=== PATIENT | male | born 1955 | race Two or more races ===

== ENCOUNTER 2024-02-08 03:05 | Inpatient (IN) | payer MEDICARE, MEDICAID, SELFPAY ==
[2024-02-08] VITALS (16 sets, daily range): BP systolic 96–132; BP diastolic 52–76; PULSE 40–69; RESP 13–21; TEMP 35.4–37.1; O2SAT 94–100; BMI 23.7
--- NOTE | 2024-02-08 03:21 | PC.NURSE ---
Dr. Hale at the bedside at this time.
--- NOTE | 2024-02-08 03:29 | PD.EDSYNC ---
ED Syncope RME/HPI General Chief Complaint: Syncope / Near Syncope Stated Complaint: BRADYCARDIA Time Seen by Provider: 02/08/24 03:07 Arrival date/time: 02/08/24 03:05 RME / HPI RME / HPI narrative: Dr. Hale?s Main ED Evaluation: 68yo male with pmhx DM, HTN, BPH BIBA from home accompanied by his presents to the ED for a chief complaint of syncope. Patient's states she heard a loud noise coming from the bathroom and found the patient on the floor, and was unable to open the door. Patient states he does not remember why he passed out, but reports his heart was racing prior to ambulating to the bathroom. Per EMS, patient was bradycardic and was given a dose of atropine en route. He endorses being diaphoretic. He denies any chest pain, shortness of breath, dizziness, lightheadedness, abdominal pain or any other associated symptoms. denies any tobacco or alcohol use. No known allergies. Related Data Allergies Allergy/AdvReac Type Severity Reaction Status Date / Time No Known Allergies Allergy Unknown Uncoded 10/02/08 12:01 Review of Systems Review of Systems Systems Reviewed: All systems reviewed, normal except as documented Past Medical History Past Medical History CARDIAC: Negative Congestive Heart Failure RESPIRATORY: Negative Chronic Obstructive Pulmonary Disease (COPD) GENITOURINARY: Negative Renal Disease ENDOCRINE: Positive Diabetes Mellitus Type 2; Negative Diabetes Mellitus Type 1 Social History SMOKING STATUS: Never smoker ED Exam Narrative Physical exam: GENERAL APPEARANCE: alert and oriented x 4, well-developed, well-nourished, no acute distress VITALS: All vitals were reviewed and the pulse ox is 100% on room air, which is normal according to my interpretation. HEENT: Normocephalic, atraumatic; pupils equal, round, reactive to light; EOMI; mucous membranes pink, moist; oropharynx clear NECK: Supple LUNGS: CTABL; no wheezes, no rales, no rhonchi HEART: Bradycardic, regular rhythm; normal S1, S2; no murmurs ABDOMEN: non distended; normal BS; soft, no tenderness, no guarding, no rebound; no masses, no organomegaly, no hernia BACK: no CVA tenderness EXTREMITIES: atraumatic; no edema NEUROLOGIC: awake; alert and oriented x4; cranial nerves II-XII grossly intact; no focal sensory or motor deficits PSYCHIATRIC: appropriate mood and affect SKIN: cold, dry, normal color; no rashes Course Course Course Narrative: CXR is ordered for determining the etiology of palpitations. Quality Measures none Orders Category Date Time Status Rock Climbing Team Member STAT Care 02/08/24 03:35 Active Continuous Pulse Oximetry ONCE Care 02/08/24 03:36 Active EKG (ED ONLY) *Do not use* NOW Care 02/08/24 03:08 Completed Insert IV STAT Care 02/08/24 03:36 Active Orthostatic Vitals STAT Care 02/08/24 03:36 Active EKG (ED Only) Stat Exams 02/08/24 03:08 Ordered XR chest 1V portable Stat Exams 02/08/24 03:36 Taken B-Type Natriuretic Peptide Stat Lab 02/08/24 04:07 Completed CBC Stat Lab 02/08/24 04:07 Completed Comprehensive Metabolic Panel Stat Lab 02/08/24 04:07 Completed Free T4 (Free Thyroxine) Stat Lab 02/08/24 04:07 Completed Magnesium Stat Lab 02/08/24 04:07 Completed TSH [Thyroid Stimulating Hormone] Stat Lab 02/08/24 04:07 Completed Troponin I Stat Lab 02/08/24 04:07 Completed Sodium Chloride 0.9% 500 ml [Ns] 500 ml Med 02/08/24 03:36 Discontinued IV 999 mls/hr Vital Signs Vital signs: Vital Signs Pulse Rate 62 02/08/24 03:07 Respiratory Rate 16 02/08/24 03:07 Blood Pressure 126/76 02/08/24 03:07 Pulse Oximetry (%) 99 02/08/24 03:07 Oxygen Delivery Method Room Air 02/08/24 03:07 Syncope MDM Narrative MDM Narrative:: Scribe Attestation: 02/08/24 Spring Vann am scribing for and in the presence of Dr. Hale. Patient data External records reviewed:: [facility] previous records (Per chart review, patient has no previous ED visits or admissions to this facility.) Clinical information provided by:: patient and spouse Social determinants that could affect healthcare access:: none Patient has the following chronic illnesses:: DM, HTN, BPH How is presenting disease/condition affected by chronic disease/condition?: uneffected by Evaluation data The following diagnostics were reviewed and interpreted by me:: lab results, radiology exam(s) and EKG tracing(s) Lab and/or radiology exams considered but not ordered:: none Interpretation Summary: CBC is normal, Glucose is 175, troponin is normal, BNP is normal, TSH and Free T4 are normal, according to my interpretation. CXR shows normal cardiac silhouette, normal sharp diaphragmatic edge, no infiltrates, normal costophrenic angles, according to my interpretation. EKG done at 0320, sinus bradycardia, rate of 55, left axis deviation, no ectopy, Q waves in lead III, avF, and V1, QRS: 124, QTc: 339, no STEMI, according to my interpretation. Medications / Prescriptions Medications or Prescriptions considered but not ordered:: none Medication administrations:: Medication Administration History Discontinued Medications Sodium Chloride (Ns) 500 mls @ 999 mls/hr IV .Q31M ONE Stop: 02/08/24 04:06 Last Infusion: 02/08/24 04:26 Dose: Infused Documented By: Admin: 02/08/24 03:50 Dose: 999 mls/hr Documented By: KG see above Consultations Consultation(s) initiated? (list below): Yes Consultation #1 (Physician, Specialty, Details): Discussed case with [Dr. Austin] from Hospitalist service regarding admission. Discussed patients ED course, exam findings, labs, and radiology results. The Hospitalist [agrees] to accept the patient for admission. Time: 05:35 Diagnosis Syncope Differential Diagnosis: vasovagal syncope, dehydration and other (electrolyte abnormality, arrhythmia) Most likely diagnosis given after review of the tests above:: see below Admission Indicated Admission indicated?: indicated Admission Request Was there a request for admission?: Yes Admission Attestation Admission request attestation: Discussed case with [] from Hospitalist service regarding admission. Discussed patients ED course, exam findings, labs, and radiology results. The Hospitalist [agrees,declines] to accept the patient for admission. Disposition Plan Disposition Plan: Admit Discharge Plan Plan Patient Disposition: Admit Acute Care w/in Hospital Prescriptions/Referrals Referrals: Inga Knott MD [Primary Care Provider] - In 1 week Problem List Clinical Impression: Syncope Patient/Caregiver Discharge Instructions Print Language: Georgian Stand Alone Forms: [facility] Award Info., Patient Portal Info Letter
--- NOTE | 2024-02-08 03:36 | XR_ITS ---
Examination: AP chest single view Technique one AP portable upright chest single view Exam date and time: February 08, 2024 0405 hrs. Indications: Onset chest pain today Findings: Normal heart size Mild vascular congestion No lobar pneumonia The osseous structures are demineralized Impression: No lobar pneumonia or pulmonary edema
[2024-02-08] MEDS: SODIUM CHLORIDE 0.9% 500 ML 500 ML 999 ML IV (03:50)
[2024-02-08 04:21] LABS: Basophils % (Auto) 1 % (0-2.5); Eosinophils # (Auto) 0.1 Thou/mm3 (0.0-0.5); Eosinophils % (Auto) 1 % (0-10); Hematocrit 40.7 % (41.0-53.0); Hemoglobin 13.7 g/dL (13.5-16.0); Immature Granulocytes % (Auto) 0 % (0-0); Immature Granulocytes Auto 0.02 Thou/mm3 (0.00-0.00); Lymphocytes # (Auto) 2.6 Thou/mm3 (1.0-4.8); Lymphocytes % (Auto) 31 % (10-50); Mean Corpuscular HGB Conc 33.7 g/dl (31.0-37.0); Mean Corpuscular Hemoglobin 28.8 pg (25.0-35.0); Mean Corpuscular Volume 86 fL (80-100); Monocytes # (Auto) 0.6 Thou/mm3 (0.0-0.8); Monocytes % (Auto) 7 % (0-12); Neutrophils # (Auto) 5.1 Thou/mm3 (1.8-7.7); Neutrophils % (Auto) 60 % (37-80); Nucleated Red Blood Cell % 0 /100 WBC (0); Platelet Count 170 Thou/mm3 (140-440); RDW Standard Deviation 39.5 fL (35.1-43.9); Red Blood Count 4.75 Miln/mm3 (4.50-5.90); White Blood Count 8.5 Thou/mm3 (3.8-10.6)
[2024-02-08 04:33] LABS: B-Type Natriuretic Peptide < 20 pg/mL (0-100)
[2024-02-08 04:36] LABS: Alanine Aminotransferase 27 U/L (10-49); Albumin, Serum 4.2 gm/dL (3.4-4.8); Albumin/Globulin Ratio 2.2 (1.2-2.2); Alkaline Phosphatase 75 U/L (46-116); Anion Gap 7 (7-16); Aspartate Amino Transferase 17 U/L (0-34); BUN/Creatinine Ratio 14 Ratio (12-20); Bilirubin,Total 1.3 mg/dL (0.3-1.2); Blood Urea Nitrogen 17 mg/dL (9-23); Calcium 10.1 mg/dL (8.3-10.6); Calcium (Corrected) 10.1 mg/dL (8.5-10.1); Carbon Dioxide 32.2 mMol/L (20.0-31.0); Chloride 99 mMol/L (98-107); Creatinine (Component) 1.2 mg/dL (0.6-1.3); Estimated Creatinine Clearance 64.5 mL/min (>60); Free T4 (Free Thyroxine) 1.28 ng/dL (0.89-1.76); Globulin 1.9 gm/dL (2.3-3.5); Glucose 175 mg/dL (74-106); Magnesium 1.6 mg/dL (1.6-2.6); Osmolality,Calculated 281 (275-295); Potassium 3.6 mMol/L (3.4-5.1); Sodium 138 mMol/L (136-145); Thyroid Stimulating Hormone 1.16 uIU/mL (0.55-4.78); Total Protein 6.1 gm/dL (5.7-8.2); Troponin I < 0.020 ng/mL (0.0-0.045); eGFR > 60 See Note
--- NOTE | 2024-02-08 05:47 | PC.NURSE ---
Admitting provider at the bedside at this time.
--- NOTE | 2024-02-08 06:10 | XR_ITS ---
Examination: CT brain head without contrast. 2-D sagittal coronal reconstructions Date and time of exam:February 08, 2024 0748 hrs. Indications: Patient fell today after syncopal episode with injury to the head, head pain CTDI: vol (mGy):52 DLP: (mGycm):993 Technique: Multiple CT axial sections of the brain have been obtained, 5 mm slice thickness. Contrast has not been administered. 2-D sagittal, coronal reconstructions have been obtained Low dose protocols were performed. One or more of the following dose reduction techniques were used; automated exposure control, adjustment of the mA and/or KV according to patient size, use of iterative reconstruction technique. Findings: No significant ventricular enlargement. Intra-axial or extra-axial hemorrhage density is not seen. No mass effect or midline shift Basal cisterns are not remarkable. Fourth ventricle is midline. Cranial vault intact. Impression: Negative for acute hemorrhage, mass effect or midline shift
[2024-02-08] MEDS: Magnesium Sulfate 2 GM Ivpb 2 GM/50 ML BAG IV (06:30)
--- NOTE | 2024-02-08 06:34 | PC.NURSE ---
Dr. Manning at the bedside at this time.
--- NOTE | 2024-02-08 07:04 | PD.RESEVENT ---
Documentation for date of: 02/08/24 Event Note Event Note: Hospital team was called for admission for Patricio Wright 68-year-old [place] Citizen-speaking male with past medical history of type 2 diabetes, hypertension, and BPH who presented to the ED on 02/08/2024 due to syncopal episode with preceding dizziness at home. Patient stated that he got up to use the bathroom, and had a prodrome of dizziness and nausea for a few minutes before passing out. Patient's heard a sound and found him down in the bathroom. He does not remember how he fell. Patient states that he has a history of episodes of palpitations and dizziness but has never passed out like this before. He denies any known triggers, denies positional dizziness. He had been on a medication for his heart which was stopped 3 months ago that he does not recall the name of which caused him to have more episodes of dizziness previously. Since then he states he had been doing better until this episode. Patient reports that he was referred to a Front End Mechanic by his PCP but has never seen one yet and is still pending referral appointment. ED workup revealed unremarkable labs, EKG showed sinus bradycardia in the 50s. Due to unwitnessed ground level fall, non-contrast head CT will be ordered and admission will be pending. Update given to ED that sign out will be given to the day hospital team to follow head CT results and admit for symptomatic bradycardia with cardiac workup if negative. Patient plan of care was discussed with the attending physician, Dr. Manning. Lucy Squires, PGY-2
--- NOTE | 2024-02-08 07:19 | PC.NURSE ---
PT RESTING IN BED IN NO APPARENT DISTRESS. PT DENIES PAIN OR DISCOMFORT. PT ON CC MONITOR, NSR TO SINUS SHIRA NOTED. NO LIGHTHEADED OR DIZZINESS REPORTED. AT BEDSIDE. CALL LIGHT WITHIN REACH
--- NOTE | 2024-02-08 07:44 | PC.NURSE ---
PT TO CT
--- NOTE | 2024-02-08 08:59 | PC.NURSE ---
RESIDENT AT BEDSIDE TO SEE PT
--- NOTE | 2024-02-08 10:10 | ECHO_ITS ---
Transthoracic Echo Report Ht (in): 71 Wt (lb): 170 Exam Location: Portable Status: Emergency Slip Laster: Kailey Hyde Indications: Procedure Performed: BP: 108 / 63 HR: 59 Rhythm: Sinus Technical Quality: Fair MEASUREMENTS (Male / Female) Normal Values 2D ECHO LV Diastolic Diameter PLAX 4.5 cm 4.2 - 5.9 / 3.9 - 5.3 cm LV Systolic Diameter PLAX 3.2 cm IVS Diastolic Thickness 1.2 cm 0.6 - 1.0 / 0.6 - 0.9 cm LVPW Diastolic Thickness 1.1 cm 0.6 - 1.0 / 0.6 - 0.9 cm LV Relative Wall Thickness 0.5 LVOT Diameter 2.1 cm LA Volume Index 18.5 cm?/m? 16 - 28 cm?/m? Ascending Aorta Diameter 3.6 cm M-MODE Aortic Root Diameter MM 3.2 cm LA Systolic Diameter MM 3.7 cm LA Ao Ratio MM 1.2 AV Cusp Separation MM 2.6 cm DOPPLER AV Peak Velocity 168.0 cm/s AV Peak Gradient 11.3 mmHg AV Mean Gradient 6.0 mmHg AV Velocity Time Integral 40.5 cm LVOT Peak Velocity 88.7 cm/s LVOT Peak Gradient 3.1 mmHg LVOT Velocity Time Integral 20.8 cm LVOT Cardiac Index 2159.1 cm?/min?m? AV Area Cont Eq vti 1.8 cm? AV Area Cont Eq pk 1.8 cm? MV Peak Velocity 78.9 cm/s MV Peak Gradient 2.5 mmHg MV Mean Velocity 37.6 cm/s MV Mean Gradient 1.0 mmHg MV Area PHT 3.1 cm? Mitral E Point Velocity 52.9 cm/s Mitral A Point Velocity 78.1 cm/s Mitral E to A Ratio 0.7 LV E' Lateral Velocity 9.7 cm/s Mitral E to LV E' Lateral Ratio 5.5 LV E' Septal Velocity 7.7 cm/s Mitral E to LV E' Septal Ratio 6.9 FINDINGS Left Ventricle Normal left ventricular size, wall thickness, systolic function with no obvious regional wall motion abnormalities. The ejection fraction is visually estimated at 55-60%. Right Ventricle The right ventricle is normal in size and systolic function. Left Atrium The left atrium is normal by two-dimensional, color flow and Doppler imaging with no structural abnormalities, no thrombus formation present. Right Atrium The right atrium is normal by two-dimensional imaging, color flow and Doppler imaging with no struct ural abnormalities, no thrombus formation present. Atrial Septum The interatrial septum appears normal with no evidence of a shunt. Aorta The aorta is normal by two-dimensional, color flow and Doppler interrogation. Mitral Valve The mitral valve is normal by two-dimensional, color flow and Doppler interrogation. There is trace mitral valve regurgitation. Aortic Valve The aortic valve is trileaflet and normal by two-dimensional, color flow and Doppler interrogation. There is trace aortic valve regurgitation. Tricuspid Valve The tricuspid valve is normal by two-dimensional, color flow and Doppler interrogation. There is tra ce tricuspid valve regurgitation. Pulmonic Valve There is no significant pulmonic valve regurgitation. Vessels The pulmonary artery appears normal. The inferior vena cava pulmonary and hepatic veins not well visualized. Pericardium The pericardium is normal by two-dimensional imaging. There is no significant pericardial effusion. CONCLUSIONS The transthoracic study is normal by two-dimensional, color flow imaging and Doppler interrogation. Normal LV size and function. Estimated EF 55-60% Normal RV size and function. Trace mitral and trace tricuspid regurgitation noted. Mild AV sclerosis without stenosis. Mary Ann Mckeon (Electronically Signed) Final Date: 08 February 2024 14:03
--- NOTE | 2024-02-08 11:29 | PC.CC ---
Pt Patricio Tate is a 68 yr old male admitted to hospitalist services for SYNCOPE and Bradycardia. ASW met with pt and Olga Tate [phone] at bedside to complete initial assessment. At time of encounter pt is noted to be alert and oriented to person, place and situation. Pt expressed understanding admission orders. Pt able to confirm demographic information. Pt is from home [address] [place] [address], where he lives in the home with his . Pt identifies his as surrogate DM. At baseline pt reports using a cane to support ambulation. Pt reports being independent with his ADLs. Pt is diabetic on insulin management. Pt is not on dialysis. Pt does not require supplemental O2 in the home. Pt is followed by Dr. Knott for primary care. At time of D/c pt will return home with family providing transport.
--- NOTE | 2024-02-08 11:41 | PC.NURSE ---
REPORT GIVEN TO BRISA ON TELE FLOOR. PT TO GO TO ROOM 279.
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
[2024-02-08] MEDS: GABAPENTIN 300 MG CAPSULE 600 MG PO ×2 (15:44→21:23)
[2024-02-08] MEDS: SODIUM CHLORIDE 0.9% 1000 ML 1,000 ML 70 ML IV (15:44)
[2024-02-08] MEDS: INSULIN LISPRO (AdmeLOG) 1 UNIT/0.01 ML UNIT SC (17:27)
--- NOTE | 2024-02-08 19:31 | ESCONSULT_ITS ---
RE: STEVAN PALACIO : 1955 DATE OF CONSULTATION: 02/08/2024 CONSULTING PHYSICIANS: Hospitalist . REASON FOR CONSULTATION: Evaluation of syncope. HISTORY OF PRESENT ILLNESS: The patient is a 68-year-old , Israeli- speaking male with history of hypertension, diabetes, hypercholesterolemia, neuropathy, glaucoma in the left eye who presented to the hospital apparently after fainting episodes. The patient was going to the restroom about 02:00 a.m. once he got up, lost consciousness, fell, the patient's did not witness the fall, but the patient apparently fell down. He went down about 4 or 5 minutes, recovered fully with no seizure movement, no other issues. He was slightly confused and brought to the hospital, diagnosed with syncope. The patient states he remembered having palpitations, rapid heart rate when he went down, but he states he has had palpitations before and also possibly fainted, but cannot remember exactly the timing. The patient in emergency room was slightly bradycardic in the high 50s, EKG initially showed sinus bradycardia rate of 55 beats per minute. Now the heart rate is 70, it is normal. Vital signs are also normal. Exam is unremarkable. The patient had a cardiac echo already reviewed, showed essentially normal echocardiogram. No valvular heart disease. So far, no arrhythmias detected on cardiac monitoring so far. ALLERGIES: None. MEDICATIONS: Medication list includes no beta blockers, aspirin 81 daily, brimonidine eye drops, furosemide 20 mg daily, gabapentin 600 t.i.d. for neuropathy, glipizide 10 mg b.i.d., HCTZ 50 mg daily and ibuprofen daily, lisinopril 40 mg daily for hypertension, metformin 1000 b.i.d., tamsulosin 0.4 daily, which is not a new medication. PAST MEDICAL HISTORY: Hypertension, diabetes, hypercholesterolemia, and glaucoma. SOCIAL HISTORY: The patient is , lives with . Does not smoke or drink alcoholic beverages. FAMILY HISTORY: Not available. REVIEW OF SYSTEMS: Cardiovascular: No chest pain. No other symptoms except palpitations, syncope. Gastrointestinal: No nausea or vomiting. SUPPLIER DIVERSITY DIRECTOR: No neurologic symptoms other than syncope. No seizures. PHYSICAL EXAMINATION: GENERAL: Well-nourished male, alert and awake in no acute distress. VITAL SIGNS: Blood pressure 130/70, pulse 69, respiratory rate 20, temperature 98.8, saturation 97% on room air. HEENT: Head is atraumatic normocephalic. Eyes normal. ENT unremarkable. NECK: Supple. No JVD. Carotid pulses felt with no bruits. CHEST: Symmetrical. LUNGS: Clear. No rales or rhonchi. HEART: S1, S2 regular. No gallops or murmur. ABDOMEN: Thin and soft. EXTREMITIES: No edema. GENITOURINARY AND RECTAL: Not performed. SUPPLIER DIVERSITY DIRECTOR: The patient is alert and oriented x3. No focal deficits. DIAGNOSTIC DATA: Cardiac echo is normal. Head CT is negative. Chest x-ray is also negative. The patient also had MRI of the C-spine that showed some evidence of disc disease, foraminal stenosis, C5 and C6. ASSESSMENT: 1. Episode of syncope with palpitations, possible tachyarrhythmia such as AFib, RVR or other type of potential VT/VF, unlikely to be VF, could be ventricular tachycardia, but no documentation. 2. Sinus bradycardia in the emergency room, heart rate of 55, not significant enough to cause syncope. 3. Diabetes mellitus. 4. Hypertension. 5. Cervical spondylosis. RECOMMENDATIONS: I would recommend watching the patient until tomorrow. He can be discharged home. The patient should have a 7-day __ heart monitor to assess his cardiac monitoring_ as an outpatient. I will be glad to see him for followup as an outpatient following discharge. Thank you for referring for cardiovascular evaluation. We will be glad to follow the patient. DT: 18:05:01 TT: 19:03:00 Ref: [id number] - TID: [id number] MTDD
[2024-02-08] MEDS: INSULIN GLARGINE (Lantus) 5 UNIT/0.05 ML (PER 5 UNITS) 15 UNIT SC (21:23)
[2024-02-09] VITALS (7 sets, daily range): BP systolic 120–148; BP diastolic 73–99; PULSE 56–135; RESP 15–25; TEMP 36.3–36.9; O2SAT 93–97; BMI 23.8
[2024-02-09 05:00] LABS: Basophils % (Auto) 0 % (0-2.5); Eosinophils # (Auto) 0.1 Thou/mm3 (0.0-0.5); Eosinophils % (Auto) 1 % (0-10); Hematocrit 42.1 % (41.0-53.0); Hemoglobin 14.1 g/dL (13.5-16.0); Immature Granulocytes % (Auto) 0 % (0-0); Immature Granulocytes Auto 0.02 Thou/mm3 (0.00-0.00); Lymphocytes # (Auto) 2.7 Thou/mm3 (1.0-4.8); Lymphocytes % (Auto) 36 % (10-50); Mean Corpuscular HGB Conc 33.5 g/dl (31.0-37.0); Mean Corpuscular Hemoglobin 28.9 pg (25.0-35.0); Mean Corpuscular Volume 86 fL (80-100); Monocytes # (Auto) 0.5 Thou/mm3 (0.0-0.8); Monocytes % (Auto) 7 % (0-12); Neutrophils # (Auto) 4.2 Thou/mm3 (1.8-7.7); Neutrophils % (Auto) 55 % (37-80); Nucleated Red Blood Cell % 0 /100 WBC (0); Platelet Count 186 Thou/mm3 (140-440); RDW Standard Deviation 40.6 fL (35.1-43.9); Red Blood Count 4.88 Miln/mm3 (4.50-5.90); White Blood Count 7.6 Thou/mm3 (3.8-10.6)
[2024-02-09] MEDS: GABAPENTIN 300 MG CAPSULE 600 MG PO ×3 (05:10→21:00)
[2024-02-09 06:03] LABS: Alanine Aminotransferase 26 U/L (10-49); Albumin, Serum 4.3 gm/dL (3.4-4.8); Alkaline Phosphatase 78 U/L (46-116); Anion Gap 6 (7-16); Aspartate Amino Transferase < 10 U/L (0-34); BUN/Creatinine Ratio 14 Ratio (12-20); Blood Urea Nitrogen 14 mg/dL (9-23); Calcium 9.5 mg/dL (8.3-10.6); Calcium (Corrected) 9.5 mg/dL (8.5-10.1); Chloride 103 mMol/L (98-107); Globulin 2.1 gm/dL (2.3-3.5); Glucose 213 mg/dL (74-106); Magnesium 1.8 mg/dL (1.6-2.6); Osmolality,Calculated 285 (275-295); Phosphorous 3.1 mg/dL (2.4-5.1); Potassium 4.2 mMol/L (3.4-5.1); Sodium 140 mMol/L (136-145); Thyroid Stimulating Hormone 0.43 uIU/mL (0.55-4.78); Total Protein 6.4 gm/dL (5.7-8.2); eGFR > 60 See Note
[2024-02-09] MEDS: SODIUM CHLORIDE 0.9% 1000 ML 1,000 ML 70 ML IV (07:14)
[2024-02-09] MEDS: INSULIN LISPRO (AdmeLOG) 1 UNIT/0.01 ML UNIT SC ×2 (07:53→12:06)
[2024-02-09] MEDS: INSULIN GLARGINE (Lantus) 5 UNIT/0.05 ML (PER 5 UNITS) 15 UNIT SC (08:44)
[2024-02-09] MEDS: ENOXAPARIN SOD INJ 40 MG/0.4 ML SYRINGE SC (08:44)
[2024-02-09] MEDS: ASPIRIN 81 MG CHEW PO (08:45)
--- NOTE | 2024-02-09 10:02 | PC.SS ---
Zookeeper (FLORES) Marie confirmed discharge plan with patient. Patient reported that he will return home; no transportation is needed.
[2024-02-09 10:06] LABS: Glucose Estimated Average 232 mg/dL (80-131); Hemoglobin A1C 9.7 % Hgb (4.8-6.0)
[2024-02-09 10:11] LABS: Free T4 (Free Thyroxine) 1.34 ng/dL (0.89-1.76)
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
--- NOTE | 2024-02-09 15:03 | PC.SS ---
Rounding Note: patient's discharge was cancelled due to high blood pressure; he might discharge tomorrow.
[2024-02-09] MEDS: INSULIN LISPRO (AdmeLOG) 1 UNIT/0.01 ML UNIT 5 UNIT SC (16:24)
[2024-02-09] MEDS: INSULIN GLARGINE (Lantus) 5 UNIT/0.05 ML (PER 5 UNITS) 20 UNIT SC (20:50)
[2024-02-10] VITALS (11 sets, daily range): BP systolic 108–145; BP diastolic 73–90; PULSE 74–103; RESP 15–26; TEMP 36.3–39.6; O2SAT 91–96; BMI 26.2
[2024-02-10] MEDS: ACETAMINOPHEN 325 MG TABLET 650 MG PO ×3 (00:58→23:56)
[2024-02-10 02:49] LABS: Collection Type, Urine Clean Catch; WBC,Urine 0 /hpf (0-5)
[2024-02-10 03:15] LABS: COVID-19 Antigen (In-House) Negative (Negative)
[2024-02-10 03:32] LABS: Bilirubin,Urine Negative (Negative); Blood,Urine Negative (Negative); Clarity,Urine Clear (Clear/Hazy); Color,Urine Lt-Yellow (Lt Yel-Yel); Glucose, Urine Negative (Negative); Ketones,Urine Negative (Negative); Leukocyte Esterase,Urine Negative (Negative); Nitrite,Urine Negative (Negative); PH,Urine 7.5 (5.0-7.0); Protein,Urine Negative (Neg - Trace); RBC,Urine 1 /hpf (0-3); Specific Gravity,Urine 1.009 (1.001-1.035); Squamous Epithelial Cell,Urine < 1 /hpf (0-5); Urobilinogen,Urine Negative mg/dL (0.0-1.0)
[2024-02-10 04:12] LABS: Influenza A Ag Negative; Influenza B Ag Negative
[2024-02-10 05:27] LABS: Basophils % (Auto) 0 % (0-2.5); Eosinophils % (Auto) 0 % (0-10); Hematocrit 43.2 % (41.0-53.0); Hemoglobin 14.4 g/dL (13.5-16.0); Immature Granulocytes % (Auto) 0 % (0-0); Immature Granulocytes Auto 0.06 Thou/mm3 (0.00-0.00); Lymphocytes # (Auto) 2.3 Thou/mm3 (1.0-4.8); Lymphocytes % (Auto) 15 % (10-50); Mean Corpuscular HGB Conc 33.3 g/dl (31.0-37.0); Mean Corpuscular Hemoglobin 28.7 pg (25.0-35.0); Mean Corpuscular Volume 86 fL (80-100); Monocytes # (Auto) 0.4 Thou/mm3 (0.0-0.8); Monocytes % (Auto) 3 % (0-12); Neutrophils # (Auto) 12.9 Thou/mm3 (1.8-7.7); Neutrophils % (Auto) 82 % (37-80); Nucleated Red Blood Cell % 0 /100 WBC (0); Platelet Count 183 Thou/mm3 (140-440); Red Blood Count 5.01 Miln/mm3 (4.50-5.90); White Blood Count 15.7 Thou/mm3 (3.8-10.6)
[2024-02-10] MEDS: GABAPENTIN 300 MG CAPSULE 600 MG PO ×3 (05:34→22:05)
[2024-02-10 06:40] LABS: Alanine Aminotransferase 28 U/L (10-49); Alkaline Phosphatase 82 U/L (46-116); Anion Gap 8 (7-16); Aspartate Amino Transferase 11 U/L (0-34); BUN/Creatinine Ratio 13 Ratio (12-20); Bilirubin,Total 2.8 mg/dL (0.3-1.2); Blood Urea Nitrogen 14 mg/dL (9-23); Calcium 9.8 mg/dL (8.3-10.6); Chloride 102 mMol/L (98-107); Creatinine (Component) 1.1 mg/dL (0.6-1.3); Estimated Creatinine Clearance 68.2 mL/min (>60); Glucose 128 mg/dL (74-106); Magnesium 1.9 mg/dL (1.6-2.6); Osmolality,Calculated 281 (275-295); Phosphorous 3.6 mg/dL (2.4-5.1); Potassium 3.8 mMol/L (3.4-5.1); Sodium 140 mMol/L (136-145); eGFR > 60 See Note
[2024-02-10 07:00] LABS: Albumin, Serum 4.5 gm/dL (3.4-4.8); Albumin/Globulin Ratio 1.8 (1.2-2.2); Calcium (Corrected) 9.8 mg/dL (8.5-10.1); Globulin 2.5 gm/dL (2.3-3.5)
[2024-02-10] MEDS: INSULIN LISPRO (AdmeLOG) 1 UNIT/0.01 ML UNIT 5 UNIT SC ×3 (07:42→16:30)
--- NOTE | 2024-02-10 07:46 | XR_ITS ---
Examination: Abdomen sonogram, Limited Date and time of exam: February 10, 2024 0848 hours INDICATIONS: Elevated bilirubin beginning 2 days ago on laboratory examination Technique: Real-time urbina scale transabdominal sonographic images of the upper abdomen obtained. Findings: Contracted gallbladder Gallbladder wall 0.4 cm Common bile duct normal 0.4 cm Pancreatic head 3.5 cm Liver 15.8 cm fatty infiltration no focal liver lesions Normal hepatopedal portal venous flow Patent IVC IMPRESSION: Recommend repeating the gallbladder portion of the study with fasting Fatty liver Normal common bile duct
[2024-02-10] MEDS: PIPER/TAZO 3.375 GM 50 ML IV ×3 (09:18→22:05)
[2024-02-10] MEDS: ASPIRIN 81 MG CHEW PO (09:18)
[2024-02-10] MEDS: INSULIN GLARGINE (Lantus) 5 UNIT/0.05 ML (PER 5 UNITS) 20 UNIT SC ×2 (09:19→20:22)
[2024-02-10] MEDS: ENOXAPARIN SOD INJ 40 MG/0.4 ML SYRINGE SC (09:19)
[2024-02-10] MEDS: INSULIN LISPRO (AdmeLOG) 1 UNIT/0.01 ML UNIT SC ×2 (09:33→16:30)
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
--- NOTE | 2024-02-10 15:01 | PC.SS ---
SS follow up note; Pending Cultures. BP and Sugars being monitored.
--- NOTE | 2024-02-10 17:44 | XR_ITS ---
Examination: AP chest single view Technique one AP portable upright chest single view Exam date and time: February 10, 2024 1751 hrs. Comparison 09/08/2023 Indications: Fever unknown origin Findings: Normal heart size. Lungs are clear. The osseous structures are intact. Impression: No active disease
[2024-02-10 19:21] LABS: Ferritin 97 ng/mL (10.5-307.3)
[2024-02-10] MEDS: BRIMONIDINE TARTRATE 0.2% BOTH EYES (20:23)
[2024-02-10 21:47] LABS: HIV (1&2) Antibody Rapid Non-Reactive
[2024-02-11] VITALS (9 sets, daily range): BP systolic 107–151; BP diastolic 68–78; PULSE 61–86; RESP 14–24; TEMP 36.3–39.4; O2SAT 91–98; BMI 25.7
[2024-02-11] MEDS: ACETAMINOPHEN 325 MG TABLET 650 MG PO (01:05)
[2024-02-11 05:45] LABS: Basophils % (Auto) 1 % (0-2.5); Eosinophils % (Auto) 0 % (0-10); Hematocrit 42.8 % (41.0-53.0); Hemoglobin 14.6 g/dL (13.5-16.0); Immature Granulocytes % (Auto) 0 % (0-0); Immature Granulocytes Auto 0.02 Thou/mm3 (0.00-0.00); Lymphocytes # (Auto) 1.9 Thou/mm3 (1.0-4.8); Lymphocytes % (Auto) 28 % (10-50); Mean Corpuscular HGB Conc 34.1 g/dl (31.0-37.0); Mean Corpuscular Hemoglobin 28.8 pg (25.0-35.0); Mean Corpuscular Volume 84 fL (80-100); Monocytes # (Auto) 0.3 Thou/mm3 (0.0-0.8); Monocytes % (Auto) 4 % (0-12); Neutrophils # (Auto) 4.5 Thou/mm3 (1.8-7.7); Neutrophils % (Auto) 67 % (37-80); Nucleated Red Blood Cell % 0 /100 WBC (0); Platelet Count 140 Thou/mm3 (140-440); RDW Standard Deviation 40.5 fL (35.1-43.9); Red Blood Count 5.07 Miln/mm3 (4.50-5.90); White Blood Count 6.7 Thou/mm3 (3.8-10.6)
[2024-02-11] MEDS: GABAPENTIN 300 MG CAPSULE 600 MG PO ×3 (05:59→21:55)
[2024-02-11] MEDS: BRIMONIDINE TARTRATE 0.2% BOTH EYES ×3 (06:00→21:54)
[2024-02-11] MEDS: PIPER/TAZO 3.375 GM 50 ML IV (06:00)
[2024-02-11 06:02] LABS: Sed Rate (ESR) 17 mm/hr (0-20)
[2024-02-11 06:19] LABS: Alanine Aminotransferase 97 U/L (10-49); Albumin, Serum 4.5 gm/dL (3.4-4.8); Alkaline Phosphatase 80 U/L (46-116); Anion Gap 7 (7-16); Aspartate Amino Transferase 78 U/L (0-34); BUN/Creatinine Ratio 12 Ratio (12-20); Blood Urea Nitrogen 12 mg/dL (9-23); C-Reactive Protein 10.8 mg/dL (0.0-0.9); Calcium 9.3 mg/dL (8.3-10.6); Calcium (Corrected) 9.3 mg/dL (8.5-10.1); Carbon Dioxide 28.8 mMol/L (20.0-31.0); Chloride 102 mMol/L (98-107); Globulin 2.3 gm/dL (2.3-3.5); Glucose 136 mg/dL (74-106); Osmolality,Calculated 277 (275-295); Potassium 3.3 mMol/L (3.4-5.1); Sodium 138 mMol/L (136-145); Total Protein 6.8 gm/dL (5.7-8.2); eGFR > 60 See Note
[2024-02-11] MEDS: INSULIN LISPRO (AdmeLOG) 1 UNIT/0.01 ML UNIT 5 UNIT SC ×3 (07:25→16:51)
[2024-02-11] MEDS: POTASSIUM CHLORIDE 20 mEq TABCR 40 MEQ PO (07:57)
[2024-02-11] MEDS: INSULIN LISPRO (AdmeLOG) 1 UNIT/0.01 ML UNIT SC ×2 (08:11→11:11)
[2024-02-11] MEDS: INSULIN GLARGINE (Lantus) 5 UNIT/0.05 ML (PER 5 UNITS) 20 UNIT SC ×2 (08:11→20:31)
[2024-02-11] MEDS: ASPIRIN 81 MG CHEW PO (08:12)
[2024-02-11] MEDS: ENOXAPARIN SOD INJ 40 MG/0.4 ML SYRINGE SC (08:12)
[2024-02-11] MEDS: VANCOMYCIN/D5W 1,250 MG IVPB 250 ML 120 MG IV ×2 (08:12→21:52)
--- NOTE | 2024-02-11 09:18 | PD.IDPROG ---
Subjective Subjective Interval history: new fever noted. no cvl. ua ok. likely viral. Exam Vital Signs Temp Pulse Resp BP Pulse Ox O2 Del Method 98.8 F 65 19 142/70 H 96 Room Air 02/11/24 04:00 02/11/24 04:00 02/11/24 04:00 02/11/24 04:00 02/11/24 04:00 02/11/24 04:00 Narrative Exam well appearing man. exam benign Objective - Internal Medicine Labs 02/11/24 04:14 02/11/24 04:14 Labs: Laboratory Results - last 24 hr 02/10/24 02/11/24 18:40 04:14 WBC 6.7 D RBC 5.07 Hgb 14.6 Hct 42.8 MCV 84 MCH 28.8 MCHC 34.1 RDW Std Deviation 40.5 Plt Count 140 D Neut % (Auto) 67 Lymph % (Auto) 28 [place] % (Auto) 4 Eos % (Auto) 0 Baso % (Auto) 1 Neut # (Auto) 4.5 Lymph # (Auto) 1.9 [place] # (Auto) 0.3 Eos # (Auto) 0.0 Baso # (Auto) 0.0 Immature Gran # (Auto) 0.02 H Absolute Nucleated RBC 0.00 Immature Gran % 0 Nucleated RBC % 0 ESR 17 Sodium 138 Potassium 3.3 L D Chloride 102 Carbon Dioxide 28.8 Anion Gap 7 BUN 12 Creatinine 1.0 Estim Creat Clear Calc 75.0 eGFR > 60 BUN/Creatinine Ratio 12 Glucose 136 H Calculated Osmolality 277 Calcium 9.3 Corrected Calcium 9.3 Phosphorus 3.0 Magnesium 2.0 Ferritin 97 Total Bilirubin 3.0 H AST 78 H ALT 97 H Alkaline Phosphatase 80 C-Reactive Prot, Quant 10.8 H Total Protein 6.8 Albumin 4.5 Globulin 2.3 Albumin/Globulin Ratio 2.0 HIV 1&2 Antibody Rapid Non-Reactive Assessment & Plan A&P Narrative acute febrile illness single pos bc, gpc, possibly contaminated drawn exactly 5 mins apart if bc with a likely contaminant and procal neg in am, then ok for home off abx as he likely has a viral process. ua benign, so stopped the zosyn Time Spent With Patient Time: Total time spent is greater than 50% in coordination of care (as documented) at patient's floor/unit and/or counseling patient:
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
[2024-02-11 14:11] LABS: Cocci Serology, IgM Negative (Negative)
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
--- NOTE | 2024-02-11 16:22 | PC.SS ---
Rounding note; Pending Cultures. Patient is on IV ABX.
[2024-02-11 17:51] LABS: RA Screen Negative (Negative)
[2024-02-12] VITALS: BP 118/72; PULSE 66; PULSE 69; RESP 19; TEMP 36.4; O2SAT 97
[2024-02-12 04:00] VITALS: BP 115/70; PULSE 66; RESP 20; TEMP 36.3; O2SAT 95
[2024-02-12] MEDS: GABAPENTIN 300 MG CAPSULE 600 MG PO (05:35)
[2024-02-12] MEDS: BRIMONIDINE TARTRATE 0.2% BOTH EYES (05:36)
[2024-02-12 06:00] VITALS: BMI 26.4
[2024-02-12 06:12] LABS: Basophils % (Auto) 0 % (0-2.5); Eosinophils % (Auto) 1 % (0-10); Hematocrit 42.4 % (41.0-53.0); Hemoglobin 14.2 g/dL (13.5-16.0); Immature Granulocytes % (Auto) 0 % (0-0); Immature Granulocytes Auto 0.01 Thou/mm3 (0.00-0.00); Lymphocytes # (Auto) 2.2 Thou/mm3 (1.0-4.8); Lymphocytes % (Auto) 38 % (10-50); Mean Corpuscular HGB Conc 33.5 g/dl (31.0-37.0); Mean Corpuscular Hemoglobin 28.3 pg (25.0-35.0); Mean Corpuscular Volume 85 fL (80-100); Monocytes # (Auto) 0.3 Thou/mm3 (0.0-0.8); Monocytes % (Auto) 6 % (0-12); Neutrophils # (Auto) 3.1 Thou/mm3 (1.8-7.7); Neutrophils % (Auto) 55 % (37-80); Nucleated Red Blood Cell % 0 /100 WBC (0); Platelet Count 134 Thou/mm3 (140-440); RDW Standard Deviation 39.9 fL (35.1-43.9); Red Blood Count 5.02 Miln/mm3 (4.50-5.90); White Blood Count 5.7 Thou/mm3 (3.8-10.6)
[2024-02-12 06:43] LABS: Alanine Aminotransferase 90 U/L (10-49); Albumin, Serum 4.3 gm/dL (3.4-4.8); Albumin/Globulin Ratio 1.9 (1.2-2.2); Alkaline Phosphatase 103 U/L (46-116); Anion Gap 9 (7-16); Aspartate Amino Transferase 47 U/L (0-34); BUN/Creatinine Ratio 11 Ratio (12-20); Bilirubin,Total 1.6 mg/dL (0.3-1.2); Blood Urea Nitrogen 12 mg/dL (9-23); Calcium 9.1 mg/dL (8.3-10.6); Calcium (Corrected) 9.1 mg/dL (8.5-10.1); Carbon Dioxide 29.5 mMol/L (20.0-31.0); Chloride 101 mMol/L (98-107); Creatinine (Component) 1.1 mg/dL (0.6-1.3); Estimated Creatinine Clearance 68.2 mL/min (>60); Globulin 2.3 gm/dL (2.3-3.5); Glucose 89 mg/dL (74-106); Osmolality,Calculated 276 (275-295); Phosphorous 2.9 mg/dL (2.4-5.1); Potassium 3.8 mMol/L (3.4-5.1); Procalcitonin 0.98 ng/ml (0.0-0.49); Sodium 139 mMol/L (136-145); Total Protein 6.6 gm/dL (5.7-8.2); eGFR > 60 See Note
[2024-02-12] MEDS: INSULIN LISPRO (AdmeLOG) 1 UNIT/0.01 ML UNIT 5 UNIT SC ×2 (07:34→12:09)
[2024-02-12 08:00] VITALS: BP 118/73; PULSE 62; PULSE 67; RESP 21; TEMP 36.2; O2SAT 94
[2024-02-12] MEDS: ENOXAPARIN SOD INJ 40 MG/0.4 ML SYRINGE SC (08:45)
[2024-02-12] MEDS: ASPIRIN 81 MG CHEW PO (08:46)
[2024-02-12] MEDS: INSULIN GLARGINE (Lantus) 5 UNIT/0.05 ML (PER 5 UNITS) 20 UNIT SC (08:46)
[2024-02-12] MEDS: VANCOMYCIN/D5W 1,250 MG IVPB 250 ML 120 MG IV (09:58)
[2024-02-12 12:00] VITALS: BP 117/72; PULSE 72; PULSE 76; RESP 21; TEMP 36.1; O2SAT 98
[2024-02-12 14:30] LABS: Cocci Serology, IgG Negative (Negative)
--- NOTE | 2024-02-12 15:48 | ESDS_ITS ---
<Statement entered by Vasile Centeno MD - 02/12/24 17:03> I attest that I was physically present for the evaluation, physical examination, lab and imaging review of the patient with the residents. I discussed the case with the residents and agree with the findings and plans of care as documented above. At bedside, patient states he is feeling well and does not have any complaints. Has been afebrile for more than 24 hours. WBC count has been improving, also noted to have improving liver enzymes and bilirubin. Procalcitonin level also noted to have decreased. Febrile episode most likely from viral illness. Blood cultures only showed GPC on one of the bottles, likely contaminant. Patient deemed stable for discharge. Advised to follow-up with PCP and cardiology in 1 to 2 weeks. Vasile Centeno MD <Statement entered by Brock Alexandre MD - 02/12/24 16:12> I saw and examined the patient, and I agree with current management stated by Dr Devin DO,PGY1. Plan of care was discussed with the attending physician and resident physician. Disclaimer: Despite multiple revisions, due to the dictation software being used, the document bellow may not be free of grammatical errors including phonetic/typographic errors. However, this does not deter from our commitment to providing health care in the patient's best interest in mind. Dr. Bettie MD, PGY 2 Planned Discharge Date 02/12/24 DS: Providers Provider Date of admission: 02/08/24 10:06 Primary care physician: Inga Knott MD Admitting Provider: Pratibha Omer DO Attending Provider on Admission: Vasile Centeno MD Consults: 02/08/24 10:16 Consult to Cardiology Stat Comment: Syncope, Symptomatic Bradycardia Consulting Provider: Joanne Hawthorne Referral Physical Therapy Stat Comment: Physician Instructions: 02/11/24 06:26 Consult to Infectious Diseases Routine Comment: GPC bacteremia Consulting Provider: Quinton More Attending Provider on DC: Brett Small Discharging Provider: Brett Small DS: Diagnosis Problem List Completed Was Problem List Reviewed/Reconciled?: Yes Hospital Course Hospital Course Hospital course: # Acute febrile illness # SIRS #Vasovagal syncope vs. Syncope of Cardiac Origin #T2DM, insulin dependent #Possible Dehydration #Neuropathy #Glaucoma of Left Eye Patient is a 68-year-old male with a past medical history of type 2 diabetes, hypertension, hyperlipidemia, neuropathy, glaucoma of left eye, BPH presented to the emergency department with after a fainting episode. Per , patient was going to the restroom at 2 AM and once he got up, lost consciousness and fell. Patient's did not witness the fall but heard the patient fall down. Patient's states that patient was down for around 5 minutes, she was unable to assess patient fully but states that he did not appear to be actively seizing. No tonic-clonic movements. After patient was down he recovered, was slightly confused and returned normal to his neurological baseline within 15 minutes. Patient states that he remembers feeling cold, palpitations as well as a fast heartbeat before he fell down. Did not recall falling down.CT obtained in ED (-). Vital signs significant for mild bradycardia in high 50s in emergency department. Labs normal. EKG showed sinus rhythm. Orthostatics normal in ED. Patient admitted for possible syncope/symptomatic bradycardia. Echocardiogram revealed normal LV, RV function with ejection fraction estimated at 55 to 60%. Stated there is nothing to do inpatient, and for follow-up with Holter monitor for 7 days in outpatient setting. Over the course of patient's hospital stay he continued to intermittently spike fevers and was tachycardic in low 100s, with high WBC count without any apparent attributable symptoms. Right upper quadrant ultrasound revealed contracted gallbladder and fatty liver, normal CBD. No clear infectious etiology of fevers noted. Rh factor negative, Coccidioides negative, influenza, HIV, COVID-negative. Infectious disease consulted and stated that this is most likely viral in nature. Upon discharge patient's symptoms resolved, patient had no lightheadedness/syncopal episodes during hospital stay. Patient advised to stop taking Lasix, hydrochlorothiazide, and glipizide as these could in combination contributed to patient's syncopal episode. Advised to continue taking metformin and insulin. Patient is advised to follow-up with his primary care provider within 1 week after discharge. Patient advised to follow-up with hepatitis C screening results as well as BOGDAN results upon discharge with his primary care provider. Patient was given [facility] information [facility] should he want to establish care there. Status at Discharge Cognitive/behavioral status at discharge: Patient is stable at time of discharge Time Spent with Patient Time attestation: Total time spent providing and/or coordinating discharge services: Exam Vital Signs Temp Pulse Resp BP Pulse Ox O2 Del Method 96.9 F 72 21 H 117/72 98 Room Air 02/12/24 12:00 02/12/24 12:00 02/12/24 12:00 02/12/24 12:00 02/12/24 12:02/12/24 12:00 Narrative Exam General: No acute distress, well appearing, alert, interactive. HEENT: NC/AT, PERRL, EOMI, Good conjugate gaze, moist mucous membranes, oropharynx clear. Neck: Supple, No masses, No adenopathy, carotid pulse 2+ bilaterally without bruits, No JVD, normal range of motion. Chest: Symmetrical, atraumatic, and with equal expansion , Nontender on palpation no deformity and no crepitus. CVS: S1 and S2 present, Regular rate and rhythm, No murmurs, rubs or gallops perceived during auscultation. Lungs: Normal respiratory effort, CTAB, no wheezing, rhonchi or rales perceived during auscultation, No intercostal or subcostal retraction. Abdomen : Soft, no tenderness to palpation, no guarding ,no rebound, +BS, no organomegaly. Extremities: No edema, warm well perfused, cap refill less than 2, +2 dp equal bilaterally, able to move all 4 extremities spontaneously. Skin: Intact, no rashes, no lesions, no erythema or jaundice noted Neuro: AOx4, no focal neurologic deficits noted, GCS 15 Psych: Appropriate mood and affect. Discharge Plan Plan Patient Disposition: HOME (Self Care) Patient condition on transfer: Stable Care Plan Goals: Please follow-up with your PCP within 1 week of discharge. If you do not have a PCP follow-up at [facility] ([phone]) Stop taking Lasix, hydrochlorothiazide, and glipizide. Continue taking metformin and insulin. Follow-up with Dr. Hawthorne within 1 week of discharge and make an appointment. Continue with rest of home medications. Prescriptions/Referrals Prescriptions/Med Rec: New gabapentin 300 mg Capsule 300 mg PO TID 30 Days Qty: 90 0RF (DME) [employer]atha 3 Sensor Device See Rx Instructions .Route Qty: 1 2RF Rx Instructions: As directed Continued tamsulosin 0.4 mg capsule 0.4 mg PO QDAY metformin 1,000 mg tablet 1,000 mg PO BID Patient Comments: TOME 1 TABLETA POR V A ORAL DOS VECES AL D A brimonidine 0.2 % drops 1 drp OPHTHALMIC (EYE) Q8HR aspirin 81 mg tablet,chewable 81 mg PO QDAY Patient Comments: TOME 1 TABLETA POR V A ORAL TODOS LOS D FOR 90 DAYS ibuprofen 600 mg Tablet 600 mg PO TID PRN (Reason: Pain) lisinopril 40 mg tablet 40 mg PO QDAY Patient Comments: TOME 1 TABLETA POR V A ORAL TODOS LOS D FOR 90 DAYS insulin glargine [Lantus Solostar U-100 Insulin] 100 unit/mL (3 mL) insulin pen 45 unit SUBCUT QDAY Qty: 15 2RF latanoprost 0.005 % Drops 1 drp OPHTHALMIC (EYE) QPM Discontinued gabapentin 600 mg tablet 600 mg PO TID Patient Comments: TOME 1 TABLETA POR V A ORAL IRAM VECES AL D A FOR 90 DAYS hydrochlorothiazide 50 mg tablet 50 mg PO QDAY Patient Comments: TOME 1 TABLETA POR V A ORAL TODOS LOS D FOR 90 DAYS glipizide 10 mg tablet 10 mg PO BID Patient Comments: TOME 1 TABLETA POR V A ORAL DOS VECES AL D A CON LAS COMIDAS FOR 90 DAYS furosemide [Lasix] 20 mg Tablet 20 mg PO QDAY Referrals: Inga Knott MD [Primary Care Provider] - Joanne Hawthorne MD [Physician] - Patient/Caregiver Discharge Instructions Other Discharge Activity Instructions:: Please follow-up with your PCP within 1 week of discharge. If you do not have a PCP follow-up at [facility] ([phone]) Stop taking Lasix, hydrochlorothiazide, and glipizide. Continue taking metformin and insulin. Follow-up with Dr. Hawthorne within 1 week of discharge and make an appointment. Continue with rest of home medications. Education Materials: Healthy Meals for Diabetes, What Is Syncope?, Causes of Syncope, Diagnosing Syncope Print Language: Senegalese Stand Alone Forms: [employer] Award Info., Patient Portal Info Letter Discharge Order Discharge Orders: Discharge (Routine); Ordered 02/12/24 Ordered By: Brock Alexandre Quality Discharge Quality Measures VTE prophylaxis
--- NOTE | 2024-02-13 07:36 | PC.CC ---
Late Entry 02/12/24 Rounding note: Pt has D/c, team request appointment with [facility].
[2024-02-14 02:46] LABS: Hepatitis C Antibody Non Reactive (Non React)
[2024-02-15 06:36] LABS: ANA Pattern NUCLEAR, HOMOGENEOUS; ANA Screen, IFA POSITIVE (NEGATIVE)
== END 2024-02-12 12:40 | disposition home or self-care (01) | DRG 641 ==
LOC: SERX 05:37 → SERHOLD 10:26 → S2NX 12:12
PROVIDERS: Internal Medicine Infectious Disease; Student in an Organized Health Care Education/Training Program; Admitting Provider Internal Medicine; Emergency Provider Emergency Medicine; PCP Family Medicine; Visit Provider Student in an Organized Health Care Education/Training Program
DX: E86.0 Dehydration (principal); R00.1 Bradycardia, unspecified; I10 Essential (primary) hypertension; E78.5 Hyperlipidemia, unspecified; H40.9 Unspecified glaucoma; B34.9 Viral infection, unspecified; E11.40 Type 2 diabetes mellitus with diabetic neuropathy, unspecified; E78.00 Pure hypercholesterolemia, unspecified; K76.0 Fatty (change of) liver, not elsewhere classified; N40.1 Benign prostatic hyperplasia with lower urinary tract symptoms; R30.0 Dysuria; M47.812 Spondylosis without myelopathy or radiculopathy, cervical region; M48.02 Spinal stenosis, cervical region; Z87.891 Personal history of nicotine dependence; Z79.4 Long term (current) use of insulin; Z79.899 Other long term (current) drug therapy; Z79.84 Long term (current) use of oral hypoglycemic drugs
CPT/HCPCS: 36415; 70450; 71045; 76705; 80053; 80202; 81001; 82728; 83036; 83735; 83880; 84100; 84145; 84439; 84443; 84484; 85025; 85652; 86038; 86140; 86331; 86430; 86635; 86703; 86803; 87040; 87077; 87086; 87186; 87502; 87811; 93005; 93306; 96361; 96365; 96366; 99285; J1650; J1815; J2543; J3370; J3475; J7030; J7040; A9270

== ENCOUNTER → 2024-11-24 | Outpatient (CLI) | payer MEDICARE, SELFPAY ==
--- NOTE | 2024-11-24 10:00 | XR_ITS ---
EXAMINATION: Ultrasound abdominal aorta TECHNIQUE: Grayscale sonographic images of the abdominal aorta Date and time: November 24, 2024, 0947 hours INDICATIONS: Nicotine dependence 10 years with lower abdominal pain onset beginning 2 months ago FINDINGS: Transverse dimension proximal aorta 2.1 cm mid aorta 1.9 cm distal aorta 1.7 cm right iliac 1.0 cm left iliac 1.0 cm IMPRESSION: Negative for abdominal aortic aneurysm
--- NOTE | 2024-11-24 10:30 | XR_ITS ---
Examination: Arterial duplex lower extremity study. Date and time of exam: November 24, 2024, 0955 hours INDICATIONS: Nicotine dependence 10 years, lower abdominal pain 2 months Findings: Duplex sonographic imaging of the lower extremity arteries using B-mode/Mauro scale imaging and Doppler spectral analysis and color flow. Ankle brachial indices have been recorded. Right common femoral artery demonstrates triphasic flow. Right superficial femoral artery demonstrates triphasic flow. Right popliteal artery demonstrates triphasic flow. Right posterior tibial artery demonstrated triphasic flow. Right ankle/brachial index is 1.2. Left common femoral artery demonstrates triphasic flow. Left superficial femoral artery demonstrates triphasic flow. Left popliteal artery demonstrates triphasic flow. Left posterior tibial artery demonstrated triphasic flow. Left ankle/brachial index is 1.1. Impression: Negative for obstructive arterial disease lower extremities
== END | disposition home or self-care (01) ==
PROVIDERS: PCP Internal Medicine; Referring Provider Internal Medicine; Visit Provider Internal Medicine
DX: I77.89 Other specified disorders of arteries and arterioles (principal); R10.30 Lower abdominal pain, unspecified; Z87.891 Personal history of nicotine dependence
CPT/HCPCS: 76770; 93925

== ENCOUNTER → 2024-12-05 | Outpatient (CLI) | payer MEDICARE, MEDICAID, SELFPAY ==
--- NOTE | 2024-12-05 13:02 | XR_ITS ---
EXAMINATION: Cervical spine 4 views TECHNIQUE: AP, lateral, swimmer's lateral, AP odontoid cervical spine 3 views Date and time: December 05, 2024, 1330 hours INDICATIONS: Neck pain beginning 3 months ago. FINDINGS: Adequate alignment cervical vertebral bodies. No cervical fracture. Intact odontoid. Advanced degenerative disc disease C5-C6, C6-C7 IMPRESSION: Advanced degenerative disc disease C5-C6, C6-C7
--- NOTE | 2024-12-05 13:02 | XR_ITS ---
Examination: Knee bilateral, 6 views Technique: Knee AP, lateral, oblique, each knee total 6 views Date and time of exam: December 05, 2024, 1330 hours INDICATION: Bilateral knee pain beginning 2 months ago. 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
== END | disposition home or self-care (01) ==
LOC: CDIM 12:43
PROVIDERS: PCP Family Medicine; Referring Provider Internal Medicine; Visit Provider Internal Medicine
DX: M17.0 Bilateral primary osteoarthritis of knee (principal); M50.322 Other cervical disc degeneration at C5-C6 level; G89.29 Other chronic pain
CPT/HCPCS: 72040; 73562